=== PATIENT | female | born 1965 | race Caucasian/White ===

== ENCOUNTER → 2017-10-22 | Outpatient (CLI) | payer BC ==
[~2017-10-22] MED LIST: CLARINEX-D 241 EACH PO; FLONASE 0.05%50 MCG NASAL; NOHOMEMEDICATIONS
== END ==
LOC: M.RAD 14:50
DX: Z12.31 Encounter for screening mammogram for malignant neoplasm of breast (principal)

== ENCOUNTER → 2017-10-27 | Outpatient (CLI) | payer BC | LOC: M.ULTRA 14:46 | DX: N60.01 Solitary cyst of right breast (principal) ==

== ENCOUNTER → 2019-05-17 | Outpatient (CLI) | payer BC | LOC: M.MRI 08:05 | DX: Z12.31 Encounter for screening mammogram for malignant neoplasm of breast (principal); M19.011 Primary osteoarthritis, right shoulder ==

== ENCOUNTER → 2019-05-27 | Outpatient (CLI) | payer BC ==
--- NOTE | 2019-06-07 16:06 | PATH ---
[address] [address] PATHOLOGY RPT PROCEDURE Name: LI PA Room: [facility] Janes#: [id number] Admission: 05/27/19 Date of : 67 Discharge: Report #: [id number] Path Case #: [id number] [facility] Accession Number: [id number] . 01 Material submitted: . breast - RIGHT BREAST, 11:00, 7 CM FROM NIPPLE. Modifiers: right . 01 Clinical history: . Right breast cancer, 1.57 x 1.58 x 1.21 cm 11:00, 7 cm from nipple . 01 Diagnosis: Right breast, 11:00, 7 cm from nipple, image-guided core biopsies: - INFILTRATING DUCTAL ADENOCARCINOMA, INTERMEDIATE GRADE, SPANNING 11 MM. - DUCTAL CARCINOMA IN SITU (DCIS), NUCLEAR GRADE III, COMEDO AND CRIBRIFORM TYPES. (See comment) . (JORDAN:trever; 05/28/2019) QL 05/28/2019 1531 Local . 01 Comment: Specimen type: Image-guided core biopsies Tumor site: Right breast, 11:00, 7 cm from nipple Tumor quantitation: Approximately 90% of submitted tissues Histologic type: Infiltrating ductal adenocarcinoma Histologic grade: Intermediate (II/III). Tubules, nuclei and mitoses: 1, 3, 2 LVSI: Not identified Microcalcifications: Not identified Markers: Breast tumor profile pending Block: A1 . Breast tumor profile studies are pending on A1 and will be the subject of an addendum report. Reviewed with Dr. Chris Matta, who agrees with the diagnosis. Cynthia (acting [facility] breast navigator) notified at approximately 1230 on 05/31/2019. . (JORDAN:trever; 05/28/2019) . 01 Addendum: . Special studies report received from [facility], [address] [place] [address], [address], [place], [address], on case [id number], labeled with their number [id number], dated 06/02/2019. . Specimen Site: Rt Breast, Breast cancer. Specimen ID #: [id number] [place] [address] PATHOLOGY RPT PROCEDURE Name: LI PA [facility]: [facility]#: [id number] Admission: 05/27/19 Date of : 67 Discharge: Report #: [id number] Path Case #: [id number] ER (Estrogen Receptor) Present/Positive Percent: 80.00% Analysis: Manual Comments: Staining Intensity: Moderate to Strong. . WV (Progesterone Receptor) Present/Positive Percent: 70.00% Analysis: Manual Comments: Staining Intensity: Moderate to Strong. . HER2 Equivocal Score: 2+ Analysis: Manual . Ki-67 Borderline Proliferation Percent: 15.00% Analysis: Manual . Time to Fixation (Cold Ischemic Time): 11 minutes Duration of Fixation: Greater than 6 hours and less than 72 hours Type of Fixative: 10% Neutral Buffered Formalin . at [employer]. Oscar Jules MD Surgical Pathologist . . Methodology The HER2 Receptor protein expression is analyzed using the [place] HER2 rabbit monoclonal antibody (clone 4B5). This assay is used for diagnostic determination of the HER2 protein over-expression in paraffin embedded, formalin fixed breast cancer tissue on the [place] Benchmark. The specimen is processed using a secondary antibody-HRP conjugate detection system. The membrane staining of the tumor is determined either by manual score or image analysis. This antibody is intended for in vitro diagnostic use. The score is reported as 0, 1+, 2+, or 3+. This test is used for clinical purposes. . A rabbit monoclonal antibody (clone SP1) that recognized the Estrogen Receptor is used to perform immunohistochemistry on routinely fixed (formalin) paraffin embedded tissue on the [place] Benchmark. The specimen is processed using a secondary antibody-HRP conjugate detection system. The percentage of stained tumor nuclei is determined either manually or by image analysis. This test is intended for in vitro diagnostic [place] [address] PATHOLOGY RPT PROCEDURE Name: LI PA Room: [facility] Marrero#: [id number] Admission: 05/27/19 Date of : 67 Discharge: Report #: [id number] Path Case #: [id number] test is used for clinical purposes. . A rabbit monoclonal antibody (clone 1E2) that recognized the Progesterone Receptor is used to perform immunohistochemistry on routinely fixed (formalin) paraffin embedded tissue on the [place] Benchmark. The specimen is processed using a secondary antibody-HRP conjugate detection system. The percentage of stained tumor nuclei is determined either manually or by image analysis. This test is intended for in vitro diagnostic use. This test is used for clinical purposes. . A rabbit monoclonal antibody (clone 30-9) that recognized Ki67 is used to perform immunohistochemistry on routinely fixed (formalin) paraffin embedded tissue on the [employer] Benchmark. The specimen is processed using a secondary antibody-HRP conjugate detection system. The percentage of stained tumor nuclei is determined either manually or by image analysis. This test is intended for in vitro diagnostic use. This test is used for clinical purposes. . Intended Use: This antibody is intended for in vitro diagnostic (IVD) use. HER2 (4B5) is a rabbit monoclonal antibody intended for the semi-quantitative detection of HER2 antigen in sections of formalin-fixed, paraffin embedded normal and neoplastic tissue. . This antibody is intended for in vitro diagnostic (IVD) use. Estrogen Receptor (ER) (SP1) is a rabbit monoclonal antibody (IgG) that is intended for the qualitative detection of estrogen receptor (ER) antigen in sections of formalin-fixed, paraffin-embedded tissue. ER is a rabbit monoclonal antibody that recognizes human estrogen receptor alpha. . This antibody is intended for in vitro diagnostic (IVD) use. Progesterone Receptor (WV) (1E2) is a rabbit monoclonal antibody (IgG) that is intended for the qualitative detection of progesterone receptor (WV) antigen in sections of formalin fixed, paraffin embedded tissue. WV is a rabbit monoclonal antibody that recognizes the A and B forms of the human progesterone receptor. . This antibody is intended for in vitro diagnostic (IVD) use. Ki-67 (30-9) is a rabbit monoclonal antibody (IgG) directed against C-terminal portion of Ki-67 antigen. Staining for Ki-67 can be used to aid in assessing the proliferative activity of normal and neoplastic tissue. Ki-67 is a nuclear protein expressed in proliferating cells. During the cell cycle, the Ki-67 antigen is present in the G1, S, G2 and M phase but is absent in the G0 (quiescent phase). . . Disclaimer: This Test was performed by [employer] at [address], [address]. [place] [address] PATHOLOGY RPT PROCEDURE Name: LI PA Room: [facility]#: [id number] Admission: 05/27/19 Date of : 67 Discharge: Report #: [id number] Path Case #: [id number] . [facility] is a business unit of [employer] a wholly-owned subsidiary of [employer]. . This assay has not been validated on decalcified tissues. Results should be interpreted with caution if this specimen was decalcified given the likelihood of false negativity on decalcified specimens. . Any image(s) that accompany this report is/are a account representative image(s) only and should not be used to render a diagnosis. . This interpretation is contingent on the specimen and the clinical information received. . For any special tests/stains performed, known positive cells or tissues are tested with each marker and examined to ensure positivity. Positive and negative internal controls, if present, react appropriately. . This analysis is an adjunct to the evaluation of the referring physician and does not represent a final diagnosis. . The immunohistochemistry tests performed at [facility] were validated on tissue fixed in 10% neutral buffered formalin. The performance characteristics of the tests performed on tissue processed in other fixatives is not known. . HER2 testing at [facility] is performed in compliance with the 2018 updated ASCO/CAP Clinical Practice Guideline Focused Update. If the result is EQUIVOCAL (2+), it must be confirmed by an alternative assay such as FISH or Dual YESSI. REF: Eva APARICIO, DARRELL Light et al: Human Epidermal Growth Factor Receptor 2 Testing in Breast Cancer: ASCO/CAP Clinical Practice Guideline Focused Update. J Clin Oncol 36:6924-5016, 2018. . HER2 and ER/WV ASCO/CAP guidelines require fixation in neutral buffered formalin for a minimum of 6 and a maximum of 72 hours. Fixation times less than 6 hours may not adequately preserve cell proteins. Fixation times longer than 72 hours may cause excess cross-linking of proteins reducing the antigen available for staining. Either scenario can cause reduced staining; hence false negative results are possible and should be considered for these situations if the HER2 IHC score is less than 3+ or ER or WV is negative (no staining or <1% positive). It is recommended that specimens fixed longer than 72 hours with HER2 IHC scores less than 3+ be confirmed by HER2 FISH or Dual YESSI. The time from biopsy/excision to fixation in formalin (cold ischemic time) must be less than 1 hour. Time to fixation (cold ischemic time) greater than 1 hour should be interpreted with caution. HER2 testing, mainly HER2 by FISH, is particularly vulnerable since excessive cold ischemic time results [place] [address] PATHOLOGY RPT PROCEDURE Name: LI PA Room: [facility]#: [id number] Admission: 05/27/19 Date of : 67 Discharge: Report #: [id number] Path Case #: [id number] of HER2 probe signals that may lead to false negative results. . SCORE STAINING PATTERN IN TUMOR CELLS INTERPRETATION RESULTS 0 No staining observed or incomplete, faint membrane staining in less than or equal to 10% of tumor cells. Negative 1+ Incomplete, faint membrane staining in greater than 10% of tumor cells. Negative 2+ Weak to moderate complete membrane staining observed in greater than 10% of tumor cells. Equivocal* *Must be confirmed by alternative assay (IHC/FISH/Dual YESSI) 3+ Intense, complete membrane staining in greater than 10% of tumor cells. Positive . A complete copy of the report is on file. . Professional and Technical services performed by [employer] at [address] [place] [address] [address]. . (JORDAN:amdonis 06/02/2019) . MBR/06/02/2019 Addendum Electronically Signed by Cuba Nelson MD, Pathologist Addendum #2: Special studies report received from [facility], [address] [place] [address], [address], [place], [address], on case [id number], labeled with their number [id number], dated 06/07/2019. . Fluorescence in situ Hybridization (FISH) Report HER2/CRISSY-17 Dual-Probe (Breast Cancer) . Result: Negative/Not Amplified HER2/CRISSY-17 Ratio: 1.3 Avg number of HER2 Signals/Nucleus: 3.9 . Indication for Study: Breast cancer . Specimen Site/Type: Right Breast Tissue . Fixative: 10% Neutral Buffered Formalin . Time to Fixation: 11 [place] [address] PATHOLOGY RPT PROCEDURE Name: LI PA Lane Room: [facility]#: [id number] Admission: 05/27/19 Date of : 67 Discharge: Report #: [id number] Path Case #: [id number] Duration of Fixation: 6-72 hours . HER2 FISH ANALYSIS Number of tumor cells counted: 20 Number of observers: 2 Avg number of HER2 Signals/Nucleus: 3.9 Avg number of CRISSY-17 Signals/Nucleus: 3.0 Ratio of average HER2/CRISSY-17: 1.3 . See report [id number] for further information. . Reviewed and electronically signed by Oscar Jules M.D. on 06/07/2019 at [email or web address] Oscar Jules M.D. . . Methodology: A FDA approved DAKO HER2 IQFISH pharmDX (HER2/CRISSY-17 DNA Probe Kit) was used for the assessment of HER2 gene amplification status. The FISH analysis was performed on areas of invasive tumor cells that were defined by a pathologist from a corresponding H and E slide. A minimum of twenty invasive tumor nuclei were analyzed by two technologists. For each nucleus, the number of HER2 signals and the number of centromere 17 (CRISSY-17) signals were recorded. Enumeration results are reported as a ratio of the total HER2 hybridization signals to CRISSY-17 hybridization signals. An average number of HER2 signals/nucleus and an average number of centromere 17 signals/nucleus were also recorded. If the HER2/CRISSY-17 ratio is >/= 2, the HER2 gene status is Amplified/Positive. If the HER2/CRISSY-17 ratio is <2, the HER2 gene status is Non-Amplified/Negative. If results are at or near the cut off (1.8-2.2), an additional 20 nuclei are counted and the ratio for 40 nuclei is recalculated. A HER2/CRISSY-17 ratio of 1.8-2.2 should be interpreted with caution. The HER2 FISH results are reported using the 2018 ASCO/CAP guidelines. . ASCO/CAP 2018 SCORING CRITERIA GROUP 1 HER2/CRISSY-17 ratio >/= 2.0 HER2 signals/cell >/= 4.0 FISH Positive . GROUP 2 HER2/CRISSY-17 ratio >/= 2.0 HER2 signals/cell < 4.0 Additional work-up required (see comments) . GROUP 3 HER2/CRISSY-17 ratio < 2.0 HER2 signals/cell >/= 6.0 Additional work-up required (see comments) [place] [address] PATHOLOGY RPT PROCEDURE Name: LI PA Room: [facility]#: [id number] Admission: 05/27/19 Date of : 67 Discharge: Report #: [id number] Path Case #: [id number] . GROUP 4 HER2/CRISSY-17 ratio < 2.0 HER2 signals/cell >/= 4.0 AND < 6.0 Additional work-up required (see comments) . GROUP 5 HER2/CRISSY-17 ratio < 2.0 HER2 signals/cell < 4.0 FISH Negative . Specimen handling: Tissue samples should be preserved in 10% neutral buffered formalin for 18-24 hours per FDA approved DAKO HER2 IQFISH pharmDX. Extended fixation time might increase the incubation time required for Pepsin digestion. ASCO/CAP guidelines requires fixation for a minimum of 6 and a maximum of 72 hours. The time from biopsy/excision to fixation in formalin (cold ischemic time) must be less than an hour. Time to fixation (cold ischemic time) greater than 1 hour should be interpreted with caution. HER2 testing, mainly HER2 by FISH, is particularly vulnerable since excessive cold ischemic time results in preferential loss of HER2 probe signals that may lead to false negative results. . Intended Use: HER2 IQFISH pharmDX is indicated as an aid in the assessment of breast cancer patients for whom Herceptin (Trastuzumab), PERJETATM (pertuzumab) or KADCYLATM (ado-trastuzumab emtansine) treatment is being considered. Results from HER2 IQFISH pharmDX are also used as an adjunct to the clinicopathologic information currently used for estimating prognosis in stage II, node-positive breast cancer patients. . Reference: Eva APARICIO, DARRELL Light et al: Human Epidermal Growth Factor Receptor 2 Testing in Breast Cancer: ASCO/CAP Clinical Practice Guideline Focused Update. J Clin Oncol 36:9361-3278, 2018. . DAKO kit: Histology FISH Accessory kit code K5799 . Disclaimer This Test was performed by [facility] at [address] [place] [address], [address]. [facility] is a business unit of [employer] a wholly-owned subsidiary of [employer]. . This assay has not been validated on decalcified tissues. Results should be interpreted with caution if this specimen was decalcified given the likelihood of false negativity on decalcified specimens. Any image(s) that accompany this report is/are a account representative image(s) [place] [address] PATHOLOGY RPT PROCEDURE Name: LI PA Room: [facility]#: [id number] Admission: 05/27/19 Date of : 67 Discharge: Report #: [id number] Path Case #: [id number] only and should not be used to render a diagnosis. A copy of the complete report is on file. Professional services performed by [employer] at [address], [place] [address]. Technical services performed by [facility] at [address], [place] [address]. . (JORDAN:am 06/07/2019) . . . [place]/06/07/2019 Addendum Electronically Signed by Cuba Nelson MD, Pathologist . 02 Electronically signed: . Cuba Nelson MD, Pathologist NPI- [id number] . 01 Gross description: . Received in formalin labeled "Li Pa, right breast 11:00 7 cm FN," are 4 distinct needle cores of yellow-tiwari fibrofatty tissue ranging from 0.4-1.5 cm in length and 0 point to 0.3 cm in diameter. 1. The tissue is submitted in its entirety in cassettes A1-A3. The cold ischemic time is 11 minutes. The total formalin fixation time is greater than 6 hours and less than 72 hours. (TSD; 05/27/2019) TOB/TOB 05/27/20191951 Local . 01 Pathologist provided ICD-10: C50.911, D05.11 . 01 CPT . 316271 Specimen Comment: A courtesy copy of this report has been sent to [phone], [phone] Specimen Comment: [phone], Specimen Comment: Report sent to ,DR CERVANTES / DR UMNOZ Performed at: [address], [place], [place] [id number] MD Rc Gonzalez MD Phone: [phone] Performed at: [address] [address] [address], [place], [place] [id number] MD Cuba Nelson MD Phone: [phone]
== END | disposition home or self-care (01) ==
LOC: M.ULTRA 12:35
DX: C50.411 Malignant neoplasm of upper-outer quadrant of right female breast (principal); Z98.890 Other specified postprocedural states

== ENCOUNTER → 2019-06-10 | Outpatient (CLI) | payer BC | LOC: M.MRI 14:17 | DX: C50.911 Malignant neoplasm of unspecified site of right female breast (principal) ==

== ENCOUNTER → 2019-07-02 | Outpatient (CLI) | payer OTHER ==
--- NOTE | 2019-07-03 22:06 | CON ---
[address] [address] CONSULTATION Name: EMBERVENANCIO Arroyo Room: [facility]#: [id number] Admission: 07/02/19 Attend Phys: Alfred Orozco MD Discharge: Date of : 67 Report #: [id number] THIS REPORT FOR: //name// CC: Alfred Oviedo MD DATE OF SERVICE: 07/02/2019 [facility] RADIATION ONCOLOGY CONSULTATION NOTE REFERRING PHYSICIANS: 1. Autumn Mckee DO 2. Matteo Oviedo MD 3. Mono Perry DO PRIMARY SITE AND HISTOPATHOLOGY: The patient has findings consistent with an infiltrating ductal carcinoma of the right breast. HISTORY OF PRESENT ILLNESS: The patient had a routine screening mammogram performed on 05/17/2019 and that revealed a spiculated mass at the 11 o'clock position that measured 1.4 cm x 1.7 cm x 1.9 cm. She went on to have a biopsy of this area at the 11 o'clock position of the right breast and the pathology revealed an infiltrating ductal adenocarcinoma. It was intermediate grade and spanned about 1.1 cm. The patient went on to undergo a right breast MRI on 06/10/2019 and the patient had a mass at the 11 o'clock position that measured 1.4 cm x 1.2 cm x 1.6 cm. The axillary region was normal with no evidence of a mass. So, the patient saw the medical oncologist, Dr. Oviedo, and she is tentatively scheduled for surgery on 07/26/2019. She presents to discuss radiation therapy. PAST MEDICAL HISTORY AND PAST SURGICAL HISTORY: The patient has hypertension. She has allergies which sometimes result in migraine headaches and bronchitis. She underwent a hysterectomy, cholecystectomy, and appendectomy in 04/2016. She had a bunionectomy in 2011. OBSTETRICS AND GYNECOLOGIC HISTORY: Menarche was at age 11 and menopause was at the time of her hysterectomy in 04/2016. She is 3, para 2. FAMILY HISTORY: Her maternal aunt had a brain tumor. Her maternal uncle had lung cancer. Her paternal aunt had colon cancer. Paternal uncle had lung cancer. Paternal uncle also had pancreatic cancer, and her daughter had [place] [address] CONSULTATION Name: VENANCIO PA [id number] Admission: 07/02/19 Attend Phys: Alfred Orozco MD Discharge: Date of : 67 Report #: [id number] SOCIAL HISTORY: The patient is a medical claims representative for medical insurance. She is . She has a daughter and a son. Cigarettes: she does not smoke cigarettes. Ethanol: she does not drink alcohol containing beverages. REVIEW OF SYSTEMS: GENERAL: The patient denied having any fevers, chills, or drenching sweats. SKIN: The patient denied having any color changes, itching, or bruising. LYMPH NODES: The patient denied having enlarged or painful glands in the neck, groin, or underarms. ENDOCRINE: The patient denied having any hot or cold intolerance. HEMATOLOGY AND IMMUNOLOGY: The patient denied having any anemia or recent bleeding. MUSCULOSKELETAL: The patient denied having any arthritis or painful swollen joints. HEAD AND NECK: She sometime has headaches, migraines, and sore throat de to allergies. RESPIRATORY: The patient denied having shortness of breath or cough. CARDIOVASCULAR: The patient denied having palpitations or chest pain. GASTROINTESTINAL: The patient denied having nausea or vomiting. NEUROLOGIC: She does have chronic issues with her neck, resulting in numbness and tingling in her arms. It sounds like she has disk issues. PHYSICAL EXAMINATION: With my nurse, Elise Guzman, present: VITAL SIGNS: Height 5 feet 4-1/2 inches, weight 155 pounds, blood pressure 158/92, pulse 89, oxygen saturation 96%, and respirations 18. LYMPH NODES: She had no palpable cervical or supraclavicular or axillary lymphadenopathy. EYES: Pupils were equal, round, and reactive to light and accommodation. HEAD, EARS, NOSE, AND THROAT: Mouth had no visible lesions. HEART: had a regular rate and rhythm without murmur. LUNGS: were clear to auscultation. BREASTS: Right breast did have a firm area in the 11 o'clock position that measured about 2 cm x 2 cm. No other suspicious palpable masses involved the right breast. There were no suspicious palpable masses involving the left breast. ABDOMEN: Not tender. Spleen was not palpable. Liver was at the costal margin. EXTREMITIES: No clubbing, cyanosis, or edema. NEUROLOGIC: Cranial nerves II to XII were intact. Sensation was intact. The patient had 5/5 strength in her extremities. ASSESSMENT AND PLAN: The patient has a right breast cancer. It is 80% estrogen receptor positive, 70% progesterone receptor positive, and HER2/cinthya negative with a Ki-67 of 15%. The patient was told that her treatment options are mastectomy versus breast conservation therapy. This is based on NSABP B-06 where patients with early breast cancer were randomized between total mastectomy versus lumpectomy and lymph node sampling versus lumpectomy and lymph node sampling and radiation therapy.There was no difference in overall survival at 20 years between the 3 groups. The addition of radiation therapy to lumpectomy reduced the local failure rate from 39% to 14%. So the [address] [address] CONSULTATION Name: VENANCIO PA [facility]: [facility]#: [id number] Admission: 07/02/19 Attend Phys: Alfred Orozco MD Discharge: Date of : 67 Report #: [id number] benefits, and logistics of radiation therapy were explained to the patient in detail. She favors a lumpectomy and is going forward with a breast conservation therapy. So right now, she is tentatively scheduled for her operation on 07/26/2019. I asked the patient to follow up with me about 2-5 weeks after that operation to tentatively set her up for radiation therapy as part of breast conservation therapy. Thank you very much for this consult. <ELECTRONICALLY SIGNED> By: Alfred Orozco MD 07/03/19 2206 1311 [id number] Orozco MD /nt
== END ==
LOC: M.RTH 11:11
DX: C50.911 Malignant neoplasm of unspecified site of right female breast (principal); I10 Essential (primary) hypertension

== ENCOUNTER → 2019-07-22 | Outpatient (CLI) | payer OTHER ==
[~2019-07-22] MED LIST changes: +ACYCLOVIR 400400 MG PO; +ALLEGRA ALLERG180 MG PO; +CALCIUM500 MG PO; +CLONAZEPAM 1 MG1 M1 PO; +COQ-10100 MG PO; +GARLIC1 EACH PO; +MAGNESIUM400 M1 PO; +METAXALL800 MG PO; +MULTIVITAMINS1 EAC6 PO; +NORCO 10-325 T1 EACH PO; +SERTRALINE HCL50 MG PO; +VITAMIN D32000 UNIT PO
== END ==
LOC: M.ULTRA 14:46 → M.RAD 07-26 08:00
DX: N63.10 Unspecified lump in the right breast, unspecified quadrant (principal); Z85.3 Personal history of malignant neoplasm of breast; Z79.899 Other long term (current) drug therapy

== ENCOUNTER → 2019-07-26 | Day surgery (SDC) | payer OTHER ==
--- NOTE | 2019-07-27 10:25 | OP ---
[address] [address] OPERATIVE REPORT Name: VENANCIO PA Room: [facility]#: [id number] Admission: 07/26/19 Attend Phys: Autumn Mckee DO Discharge: Date of : 67 Report #: [id number] THIS REPORT FOR: //name// cc: Mono Perry Steve T. DO ~ THIS REPORT FOR: //name// CC: Autumn Perry DO DICTATED BY: Etelvina Conklin DO DATE OF SERVICE: 07/26/2019 PRIMARY CARE PHYSICIAN: Mono Perry DO PREOPERATIVE DIAGNOSIS: Right breast cancer. POSTOPERATIVE DIAGNOSIS: Right breast cancer. PROCEDURE PERFORMED: Right breast seed localized lumpectomy and right superficial sentinel lymph node dissection. PRIMARY SURGEON: Autumn Mckee DO WOOD MILLER: Etelvina Conklin DO, PGY-2 SECOND SKILL LABOR: Kylie Blas MS3 ANESTHESIA: General and local. ESTIMATED BLOOD LOSS: 30 mL. FINDINGS: Clip and seed in the right breast around 11 o'clock, uptake at the nipple was 5100, highest uptake on lymph node was 155. Lumpectomy was 2 mm from the skin at the anterior margin, posterior margin was taken all the way down to pectoralis fascia. COMPLICATIONS: None. SPECIMEN: Right breast lumpectomy and right superior margin and right sentinel lymph node. INDICATIONS FOR PROCEDURE: The patient is a pleasant 54-year-old female that presented to our office with a diagnosis of right breast cancer. She is deemed [facility] [address] [place] [address] OPERATIVE REPORT Name: VENANCIO PA Room: [facility]#: [id number] Admission: 07/26/19 Attend Phys: Autumn Mckee DO Discharge: Date of : 67 Report #: [id number] a good candidate for breast conservation. We planned for a right seed localized lumpectomy and sentinel lymph node dissection. The procedure, risks, benefits, possible complications to include bleeding, infection, injury to surrounding structures, need for additional surgery, breast asymmetry, wound healing complications, risk of anesthesia, and other risks of surgery were discussed with the patient in great detail. She voiced complete understanding and wished to proceed with surgery. DESCRIPTION OF PROCEDURE: Informed consent was obtained. The patient was taken to the Radiology Department for nuclear medicine injection. She had had a seed placed prior to surgery today. She then returned from Radiology Department. She was taken to the operating room and placed supine on the operating room table. Preoperative antibiotics were given. SCDs were placed on bilateral lower extremities. General LMA anesthesia was induced without difficulty. Lymphazurin blue dye was injected at the right breast. The right breast and axilla were then prepped and draped in the standard sterile fashion. A timeout was performed to ensure correct patient and procedure. Neoprobe was brought onto the field. We had maximum uptake at the nape of 5100. The seed localizer was also brought onto the field and was used to identify the approximate location of our seed. A 4 cm periareolar incision was made using a #15 blade scalpel. Incision was carried down through the subcutaneous tissues using electrocautery. Using the seed localizer, we continued our dissection superiorly from the incision. Allis clamp was used to grasp our specimen. We continued our dissection using electrocautery all the while using the seed localizer to help ensure seed was contained within the specimen. Lumpectomy specimen was completely excised using electrocautery. Seed localizer was used to ensure seed was in fact present within the specimen. It appeared that our closest margin was the superior margin. Initial lumpectomy specimen was marked short suture superior, long suture lateral, was placed in the TranSpec container and taken to Radiology. We elected to take an additional superior margin as this one appeared to be fairly close to the seed. Again, breast tissue was grasped with an Allis clamp and an additional superior margin was excised using electrocautery. This was also oriented using short stitch superior, long stitch lateral. Radiology Department then called into the OR and confirmed that both our clip and seed were present within the initial lumpectomy specimen with an approximately 9 mm superior margin. The lumpectomy cavity was inspected to ensure hemostasis. We then turned our attention to the right axilla. Neoprobe was again used to identify the approximate location of our sentinel lymph node. A 3 cm incision was made in the axilla using #15 blade scalpel. Incision was carried down through subcutaneous tissue using electrocautery. Venancio clamp was used to bluntly dissect in the axilla. We identified blue lymphatic channel which we were able to follow to a hot blue lymph node. This was excised in its entirety. We had maximal uptake on the lymph node of 155. Lymph node was passed off for permanent specimen. Neoprobe was again used to explore the right axilla. No additional sentinel lymph nodes were identified[place] [address] OPERATIVE REPORT Name: VENANCIO PA Room: [facility] IsaShawna#: [id number] Admission: 07/26/19 Attend Phys: Autumn Mckee DO Discharge: Date of : 67 Report #: [id number] in both wound beds. The subcutaneous tissue in the right axilla was closed using 3-0 Vicryl suture in a simple interrupted and inverted fashion. The skin was closed using 4-0 Monocryl suture in a running subcuticular fashion. BioZorb sizer was used to help us choosing appropriate size BioZorb. This was placed within the lumpectomy cavity and sutured in place using 3-0 Vicryl. Subcutaneous tissues were approximated using 3-0 Vicryl suture in a simple interrupted and inverted fashion. Skin was closed using 4-0 Monocryl suture in a running subcuticular fashion. Skin was cleansed and dried. Sterile dressings were applied using Mastisol, Steri-Strips, 4 x 4s, and Tegaderms. The patient tolerated the procedure very well. She was allowed to awaken in the operating room and was transferred to the PACU in stable condition with plans to discharge home later today. <ELECTRONICALLY SIGNED> By: Autumn Mckee DO 07/27/19 1025 1219 1249Chdanyell Mckee DO /nt
--- NOTE | 2019-07-30 13:08 | PATH ---
[address] [address] PATHOLOGY RPT PROCEDURE Name: VENANCIO PA Room: [facility]#: [id number] Admission: 07/26/19 Date of : 67 Discharge: Report #: [id number] Path Case #: [id number] [facility] Accession Number: [id number] . 01 Material submitted: . PART A: breast - RIGHT BREAST LUMPECTOMY, TAG = SHORT SUPERIOR, LONG LATERAL. Modifiers: right PART B: breast - RIGHT BREAST LUMPECTOMY ADDITIONAL SUPERIOR MARGIN, LAT. Modifiers: left, superior PART C: lymph node - RIGHT SENTINEL NODE BIOPSY. Modifiers: right . 01 Clinical history: . Right breast infiltrating ductal carcinoma Right breast cancer B: Tag = long lateral, short superior . 02 Diagnosis: A. Right breast lumpectomy: - INFILTRATING DUCTAL ADENOCARCINOMA, INTERMEDIATE GRADE, SPANNING 15 MM, ADJACENT TO PRIOR BIOPSY SITE (WITH CYLINDRICAL BIOPSY MARKER), WITH ALL SURGICAL MARGINS FREE OF INVOLVEMENT AND CLOSEST (ANTERIOR) LOCATED 3 MM AWAY. - DUCTAL CARCINOMA IN SITU (DCIS), NUCLEAR GRADE III, COMEDO AND CRIBRIFORM TYPES, ASSOCIATED WITH INVASIVE TUMOR, SPANNING 15 MM, WITH ALL SURGICAL MARGINS FREE OF INVOLVEMENT AND CLOSEST (ANTERIOR) LOCATED 3 MM AWAY. SEE COMMENT. . B. Right breast lumpectomy additional superior margin: - Focal atypical ductal hyperplasia with luminal calcifications, scattered apocrine change and mild chronic inflammation, negative for malignancy. . C. Right sentinel node biopsy: - One benign lymph node with fatty infiltration (0/1). See comment. . (JORDAN:bhavin; 07/29/2019) . . Surgical Pathology Cancer Case Summary . Protocol posting date: February 2019 . INVASIVE CARCINOMA OF THE BREAST: Resection . Procedure ___ Excision (less than total mastectomy) . Specimen Laterality ___ [place] [address] PATHOLOGY RPT PROCEDURE Name: VENANCIO PA Room: [facility]#: [id number] Admission: 07/26/19 Date of : 67 Discharge: Report #: [id number] Path Case #: [id number] Tumor Size ___ Greatest dimension of largest invasive focus >1 mm: 15 mm . Histologic Type ___ Invasive carcinoma of no special type (invasive ductal carcinoma, not otherwise specified) . Histologic Grade (Maite Histologic Score) Glandular (Acinar)/Tubular Differentiation ___ Score 1 (>75% of tumor area forming glandular/tubular structures) . Nuclear Pleomorphism ___ Score 3 (vesicular nuclei, often with prominent nucleoli, exhibiting marked variation in size and shape, occasionally with very large and bizarre forms) . Mitotic Rate ___ Score 2 . Overall Grade ___ Grade 2 (scores of 6 or 7) . + Tumor Focality + ___ Single focus of invasive carcinoma . Ductal Carcinoma In Situ (DCIS) ___ Present + ___ Negative for extensive intraductal component (EIC) . + Size (Extent) of DCIS + Estimated size (extent) of DCIS is at least: 15 mm + Number of blocks with DCIS: 7 + Number of blocks examined: 38 . + Architectural Patterns + ___ Comedo + ___ Cribriform . + Nuclear Grade + ___ Grade III (high) . + Necrosis + ___ Present, central (expansive "comedo" necrosis) . + Lobular Carcinoma In Situ (LCIS) + ___ No LCIS in [place] [address] PATHOLOGY RPT PROCEDURE Name: VENANCIO PA Lane Room: [facility]#: [id number] Admission: 07/26/19 Date of : 67 Discharge: Report #: [id number] Path Case #: [id number] Invasive Carcinoma Margins ___ Uninvolved by invasive carcinoma Distance from closest margin: ___ Specify 3 mm (see comment) . + Specify closest margin(s): Anterior . DCIS Margins ___ Uninvolved by DCIS . Distance from closest margin: ___ Specify 3 mm . Specify closest margin(s): Anterior. See comment. . Regional Lymph Nodes ___ Uninvolved by tumor cells Total Number of Lymph Nodes Examined: 1 Number of Nubieber Nodes Examined: 1 . + Lymphovascular Invasion + ___ Not identified . + Dermal Lymphovascular Invasion + ___ No skin present . . PATHOLOGIC STAGE CLASSIFICATION (PTNM, AJCC 8TH EDITION) Primary Tumor (pT) ___ pT1c:Tumor >10 mm but =20 mm in greatest dimension . Regional Lymph Nodes Modifier ___ (sn):Nubieber node(s) evaluated. If 6 or more nodes (sentinel or nonsentinel) are removed, this modifier should not be used. . Regional Lymph Nodes (pN) ___ pN0:No regional lymph node metastasis identified or ITCs only . + Additional Pathologic Findings + Specify: 2 fibroadenomas . + Ancillary Studies + ___ Breast Biomarker Testing Performed on Previous Biopsy + Testing Performed on A1 . + Estrogen Receptor (ER) + ___ Positive 80% . + Progesterone Receptor (PgR) [place] [address] PATHOLOGY RPT PROCEDURE Name: VENANCIO PA Room: [facility]#: [id number] Admission: 07/26/19 Date of : 67 Discharge: Report #: [id number] Path Case #: [id number] + ___ Positive 70% . + HER2 (by immunohistochemistry) + ___ Equivocal (Score 2+) . + HER2 (by in situ hybridization) + ___ Negative (not amplified) . + ___ Ki-67 percentage of positive nuclei: 15% . + Microcalcifications + ___ Present in non-neoplastic tissue . + Clinical History + Specify site, diagnosis, and prior treatment: Prior right breast 11:00, 7 cm from nipple image-guided core biopsies showing infiltrating ductal adenocarcinoma, intermediate grade, spanning 11 mm with DCIS, nuclear grade III, comedo and cribriform types ([phone]). R 07/29/2019 1529 Local . 02 Comment: The closest approach of invasive tumor and DCIS to margins provided in the synoptic data may be of greater distance because of additional superior marginal tissues obtained (B). Properly controlled keratin AE1/AE3 stains performed on C1, C2 and C3 show no evidence of metastatic tumor. (JORDAN:bhavin; 07/29/2019) . 02 Electronically signed: . Cuba Nelson MD, Pathologist NPI- [id number] . 01 Gross description: . A. The specimen is received in formalin, labeled "Venancio Pa R breast lumpectomy" and consists of an oriented 55 g lumpectomy specimen with a long stitch lateral and short superior. It measures 6.5 cm S-I, 5.7 cm L-M, 2.2 cm A-P, and is inked as follows: superior-blue, inferior-green, medial-red, lateral-yellow, anterior-orange, and posterior-black. It is sectioned from superior to inferior revealing a stellate white mass measuring 1.5 x 1.3 x 1.1 cm that is 0.2 cm from anterior, 0.6 cm from posterior, 1.3 cm from the lateral, 1.0 cm from medial, greater than 0.5 cm from superior, and greater than 3 cm from inferior. Present within the mass is a cylindrical biopsy marker. Adjacent to the mass are previous biopsy changes. Inferior to the mass there is extensive blue dye with approximately 40% fibrous streaks. No additional masses are identified. Rides Supervisor sections are submitted as follows: . A1-A2: Superior, perpendicular A3-A11: Entire mass (A3-A8 bisected full-thickness sections and A9-A11 [place] [address] PATHOLOGY RPT PROCEDURE Name: VENANCIO PA Room: [facility]#: [id number] Admission: 07/26/19 Date of : 67 Discharge: Report #: [id number] Path Case #: [id number] trisected full-thickness section) A12-A13: Bisected slice superior mass A14-A16: Trisected slice inferior mass A17-A19: Trisected slice from inferior half of specimen A20-A21: Inferior, perpendicular . The specimen was collected on 07/26/2019 with no time in formalin provided. The cold ischemic time is unknown and the time out of formalin is 11:50 PM on 07/27/2019. . B. The specimen is received in formalin, labeled "Venancio Pa R breast lumpectomy additional superior margin" and consists of an oriented 17 g lumpectomy specimen with a long stitch lateral and short stitch superior. It measures 4.9 cm L-M, 4.1 cm S-I, 1.9 cm A-P, and is inked as follows: superior-blue, inferior-green, medial-red, lateral-yellow, anterior-orange, and posterior-black. It is sectioned from lateral to medial revealing yellow lobulated cut surfaces with a focus of firm fibrous tissue/possible mass towards the medial aspect measuring 0.9 x 0.7 x 0.5 cm. The area is 0.2 cm from anterior, 0.3 cm from posterior, 1.0 cm from inferior, greater than 2 cm from superior and lateral, and 1 cm from medial. No additional gross lesions are identified. The specimen is entirely submitted as follows: . B1: Lateral, perpendicular B2-B16 (B8-B15 bisected full-thickness slices) B17: Medial, perpendicular . The specimen was collected on 07/26/2019 and placed in formalin at 11:21 AM. The cold ischemic time is unknown and the time out of formalin is 11:50 PM on 07/27/2019. . C. The specimen is received in formalin, labeled "Venancio Pa, right sentinel node BX" and consists of a segment of yellow lobulated tissue measuring 2.8 x 2.1 x 1.0 cm. Present within is a lymph node measuring 1.7 x 1.3 x 0.9 cm showing a partially fat replaced cut surfaces. The specimen is entirely submitted in C1-C3. (SD; 07/27/2019) SYU/SYU 07/29/2019 1510 Local . 02 Pathologist provided ICD-10: C50.911, D05.11, N62, N61.0 . 02 CPT . 649344, 021713, 898466, F28918 Specimen Comment: A courtesy copy of this report has been sent to [phone], [phone] Specimen Comment: [phone] Specimen Comment: Report sent to / DR MUNOZ Performed at: 01 [place] [address] PATHOLOGY RPT PROCEDURE Name: VENANCIO PA Room: [facility]#: [id number] Admission: 07/26/19 Date of : 67 Discharge: Report #: [id number] Path Case #: [id number] [facility] [address] [place] [address] [address], [place], [place] [id number] MD Rc Gonzalez MD Phone: [phone] Performed at: 02 [facility] [address] [place] [id number] MD Cuba Nelson MD Phone: [phone]
--- NOTE | 2019-08-04 13:43 | EKG ---
[place] [address] ELECTROCARDIOGRAM REPORT Name: VENANCIO PA Room: [facility]#: [id number] Admission: 07/26/19 Attend Phys: Autumn Mckee, Discharge: Date of : 67 Date of Service: 07/26/1927 Report #: [id number] THIS REPORT FOR: cc: Mono Perry Steve T. DO Blick, David R. MD [facility] THIS REPORT FOR: //name// [facility] Test Date: 2019-07-26 Test Time: 08:27:42 Pat Name: VENANCIO PA Department: Room: Gender: F [place] Clerk: JOSE ALEJANDRO : 1965 Requested By: Autumn Mckee Order Number: [id number] Reading MD: Stephen Mcelroy Measurements Intervals [place] Rate: 78 P: 75 LA: 135 QRS: 9 QRSD: 88 T: 39 QT: 408 QTc: 465 Interpretive Statements Sinus rhythm No previous ECG available for comparison Electronically Signed On 07-26-2019 11:25:03 [employer] by Stephen Mcelroy [email or web address] <ELECTRONICALLY SIGNED> By: Stephen Mcelroy MD, [facility] 07/26/19 1125 0827 0827 Stephen Mcelroy MD, [facility] /EPI
== END | disposition home or self-care (01) ==
LOC: M.SUR 07:03
DX: C50.911 Malignant neoplasm of unspecified site of right female breast (principal); N60.81 Other benign mammary dysplasias of right breast; R59.9 Enlarged lymph nodes, unspecified; N62 Hypertrophy of breast; R92.1 Mammographic calcification found on diagnostic imaging of breast; Z98.890 Other specified postprocedural states; Z79.899 Other long term (current) drug therapy

== ENCOUNTER → 2019-12-22 | Outpatient (CLI) | payer OTHER | LOC: M.RAD 12-14 15:20 | PROVIDERS: ATTEND Radiology Radiation Oncology | DX: C50.411 Malignant neoplasm of upper-outer quadrant of right female breast (principal); Z17.0 Estrogen receptor positive status [ER+] ==

== ENCOUNTER → 2020-06-05 | Outpatient (CLI) | payer OTHER | LOC: M.RAD 14:55 | PROVIDERS: ATTEND Radiology Radiation Oncology | DX: C50.411 Malignant neoplasm of upper-outer quadrant of right female breast (principal); Z17.0 Estrogen receptor positive status [ER+] ==

== ENCOUNTER → 2020-11-30 | Outpatient (CLI) | payer OTHER | LOC: M.RAD 14:58 | PROVIDERS: ATTEND Radiology Radiation Oncology | DX: C50.411 Malignant neoplasm of upper-outer quadrant of right female breast (principal); Z17.0 Estrogen receptor positive status [ER+]; N63.11 Unspecified lump in the right breast, upper outer quadrant; R92.8 Other abnormal and inconclusive findings on diagnostic imaging of breast ==

== ENCOUNTER → 2021-06-04 | Outpatient (CLI) | payer OTHER | LOC: M.MRI 14:30 | DX: Z12.31 Encounter for screening mammogram for malignant neoplasm of breast (principal); M47.22 Other spondylosis with radiculopathy, cervical region; M50.123 Cervical disc disorder at C6-C7 level with radiculopathy; M25.78 Osteophyte, vertebrae; M48.02 Spinal stenosis, cervical region ==